=== PATIENT | male | born 1960 | race Caucasian/White ===

== ENCOUNTER → 2018-09-14 | Outpatient (CLI) | payer MEDICARE ==
--- NOTE | 2018-09-14 16:38 | KCIC ---
Left shoulder 3 views, left humerus 2 views. HISTORY: Left shoulder pain 3 views were taken of the left shoulder. There is not evidence of an acute fracture or dislocation or osseous abnormality. Left humerus 2 views 2 views were taken of the left humerus. There is not evidence of an acute fracture or osseous abnormality. If the elbow is of concern an additional views including a true lateral of the elbow would be of benefit. IMPRESSION: 1. Negative left humerus. 2. No fracture or dislocation or acute osseous abnormality in the left shoulder. Electronically signed by: Karthikeyan Bolaños MD (09/14/2018 4:35 PM) [facility]
== END | disposition home or self-care (01) ==
LOC: KCIC 11:36
PROVIDERS: ATTEND Family Medicine
DX: M79.602 Pain in left arm (principal); M25.512 Pain in left shoulder
CPT/HCPCS: 73030; 73060

== ENCOUNTER → 2021-05-23 | Outpatient (CLI) | payer MEDICARE ==
--- NOTE | 2021-05-23 14:56 | KCIC ---
EXAM: Left foot, 3 views. HISTORY: Pain. COMPARISON: None. FINDINGS: 3 views of the left foot are obtained. There is a healed distal fifth metatarsal fracture w ith surrounding bridging callus. There is a second hammertoe deformity. There is mild first metatarsa l phalangeal joint spurring. IMPRESSION: 1. Healed distal fifth metatarsal fracture. 2. Minimal first metatarsal phalangeal joint osteoarthritis. 3. Second hammertoe deformity. Electronically signed by: Lisa Urbano MD (05/23/2021 2:54 PM) [id number]
--- NOTE | 2021-05-23 15:05 | KCIC ---
EXAM: Lower extremity arterial Doppler sonogram with ankle-brachial indices (SATYA). HISTORY: Pain. Cigarette smoking. Peripheral vascular disease. TECHNIQUE: Doppler sonographic evaluation of the lower extremities was performed and pressure reading s were assessed. FINDINGS: Right brachial pressure: 105 mmHg Left brachial pressure: 110 mmHg The right and left ankle pressure is at the dorsalis pedis and posterior tibial arteries cannot be ca lculated. This can be seen with severe vessel hardening significant calcified plaque. IMPRESSION: Noncalculable ankle-brachial indices. This can be seen with severe vessel hardening. Electronically signed by: Lisa Urbano MD (05/23/2021 3:02 PM) [id number]
== END ==
LOC: KCIC US 13:58
PROVIDERS: ATTEND Family Medicine
DX: M19.072 Primary osteoarthritis, left ankle and foot (principal); M20.42 Other hammer toe(s) (acquired), left foot; M77.52 Other enthesopathy of left foot and ankle; F17.210 Nicotine dependence, cigarettes, uncomplicated
CPT/HCPCS: 73630; 93922

== ENCOUNTER → 2021-06-15 | Outpatient (CLI) | payer MEDICARE ==
[~2021-06-15] MED LIST: ASPI-630 PO; CLOP75TA PO; GABA-585 PO; HYDR-2769 PO
[2021-06-15 13:14] LABS: BASO % 1 % (0-3); EOS % 1 % (0-3); HEMATOCRIT 42.4 % (39.0-53.0); HEMOGLOBIN 14.2 g/dL (13.0-17.5); LYMPH # 1.1 x10^3/uL (1.0-4.8); LYMPH % 26 % (24-48); MEAN CORPUSCULAR HEMOGLOBIN 32 pg (25-35); MEAN CORPUSCULAR HGB CONC 33 g/dL (31-37); MEAN CORPUSCULAR VOLUME 95 fL (79-100); MONO # 0.3 x10^3/uL (0.0-1.1); MONO % 6 % (0-9); NEUT # 2.9 x10^3/uL (1.8-7.7); NEUT % 66 % (31-73); PLATELET COUNT 174 x10^3/uL (140-400); RED BLOOD COUNT 4.47 x10^6/uL (4.30-5.70); RED CELL DISTRIBUTION WIDTH 14.5 % (11.5-14.5); WHITE BLOOD COUNT 4.4 x10^3/uL (4.0-11.0)
== END ==
LOC: LAB 12:31
PROVIDERS: ATTEND Podiatrist
DX: I99.8 Other disorder of circulatory system (principal)
CPT/HCPCS: 36415; 85025; 85651; 86140; 87075; 87077; 87147

== ENCOUNTER → 2021-06-18 | Outpatient (CLI) | payer MEDICARE ==
--- NOTE | 2021-06-18 10:34 | RAD ---
US DPLX ARTR EXTREM LOWER BILAT Indication: Reason: ISCHEMIC TOE / Spl. Instructions: / History: Pain Comparison: None. Procedure: Real-time grayscale, color flow Doppler, and Doppler spectral waveform analysis of the art erial system of the lower extremity is performed. Findings: Right lower extremity: Monophasic wave forms throughout the right lower extremity. Significant elevat ed velocity within the right superficial femoral artery distally measures 535 cm/s. No occlusion. Sev ere atheromatous plaque. Left lower extremity: Occlusion of the popliteal artery. Peroneal artery not identified. Often seen w ith fluid throughout the left lower extremity. No significant velocity elevation. Severe atheromatous plaque. IMPRESSION: 1. Occlusion of the LEFT popliteal artery with distal reconstitution. CT angiogram can further asses s if persistent clinical concern. 2. Severely elevated velocity within the RIGHT superficial femoral artery, may indicate greater than 95 percent stenosis. 3. Monophasic waveforms within the bilateral lower extremities, may indicate proximal aortoiliac prateek nosis. 4. LEFT peroneal artery not identified, may relate to slow flow or occlusion. Electronically signed by: Nader Avilez DO (06/18/2021 10:32 AM) [id number]
== END ==
LOC: US 07:07
PROVIDERS: ATTEND Podiatrist
DX: I70.203 Unspecified atherosclerosis of native arteries of extremities, bilateral legs (principal); I70.245 Atherosclerosis of native arteries of left leg with ulceration of other part of foot
CPT/HCPCS: 93925

== ENCOUNTER → 2021-06-25 | Outpatient (CLI) | payer MEDICARE ==
[~2021-06-25] VITALS: Ht 193 cm; Wt 91.0 kg
[2021-06-25] VITALS (11 sets, daily range): BP systolic 99–120; BP diastolic 65–74
[~2021-06-25] MED LIST changes: +0.9 % SODIUM CHLORIDE 10 ML DISP.SYRIN. IV PRN; +ACETAMINOPHEN 325 MG TABLET. PO PRN; +ASPIRIN 325 MG TABLET ONE; +ASPIRIN 325 MG TABLET PO ONE; +ASPIRIN ENTERIC COATED 81 MG TABLET.DR. PO SCH; +CLOPIDOGREL BISULFATE 75 MG TABLET ONE; +CLOPIDOGREL BISULFATE 75 MG TABLET PO ONE; +CLOPIDOGREL BISULFATE 75 MG TABLET PO SCH; +CONTRAST GIVEN. MC PRN; +HEPARIN for IV BOLUS 10,000 UNIT/10 ML VIAL. IART ONE; +HEPARIN for IV BOLUS 10,000 UNIT/10 ML VIAL. ONE; +IODIXANOL 320 200 ML in NS 200 ML IART ONE; +IV 1/2 NORMAL SALINE 1,000 ML IV SCH; +LIDOCAINE 1% Multi-Dose 20 ML VIAL. INJ ONE; +LIDOCAINE 1% Multi-Dose 20 ML VIAL. ONE; +LIDOCAINE 1% PF 2 ML VIAL. INJ ONE; +LIDOCAINE 1% PF 2 ML VIAL. ONE; +MIDAZOLAM HCL/PF 2 MG/2 ML VIAL. IV ONE; +MIDAZOLAM HCL/PF 2 MG/2 ML VIAL. IVP ONE; +MIDAZOLAM HCL/PF 2 MG/2 ML VIAL. ONE; +NITROGLYCERIN 200 MCG/2 ML SYRINGE FOR CATH/VASC LAB. IART ONE; +NITROGLYCERIN 200 MCG/2 ML SYRINGE FOR CATH/VASC LAB. ONE; +VERAPAMIL 5 MG/2 ML VIAL. IART ONE; +VERAPAMIL 5 MG/2 ML VIAL. ONE; +diphenhydrAMINE 50 MG/ML VIAL IVP ONE; +diphenhydrAMINE 50 MG/ML VIAL ONE; +fentaNYL PF VIAL 100 MCG/2 ML VIAL IV ONE; +fentaNYL PF VIAL 100 MCG/2 ML VIAL IVP ONE; +fentaNYL PF VIAL 100 MCG/2 ML VIAL IVP PRN; +fentaNYL PF VIAL 100 MCG/2 ML VIAL ONE
[2021-06-25 09:39] LABS: HEMATOCRIT 43.9 % (39.0-53.0); HEMOGLOBIN 14.6 g/dL (13.0-17.5); RED BLOOD COUNT 4.64 x10^6/uL (4.30-5.70); RED CELL DISTRIBUTION WIDTH 14.3 % (11.5-14.5); WHITE BLOOD COUNT 4.4 x10^3/uL (4.0-11.0)
[2021-06-25 09:48] LABS: PROTHROMBIN TIME PATIENT 12.5 SEC (11.7-14.0)
[2021-06-25 10:14] LABS: CALCIUM 9.5 mg/dL (8.5-10.1); CREATININE 1.1 mg/dL (0.7-1.3); GFR 67.6; POTASSIUM 3.9 mmol/L (3.5-5.1)
--- NOTE | 2021-06-25 13:28 | PDOC ---
MODERATE SEDATION ASSESSMENT RISKS/ALTERNATIVES Risks/Alternatives Risks and alternatives of this type of sedation and procedure discussed with: RISK/ALTERNATIVES: Patient H & P ON CHART H & P H & P on chart and reviewed for co-morbid conditions and appropriate labs. H&P ON CHART: Yes STATUS PREG STATUS ASSESSED: N/A MEDS/ALLERGIES REVIEWED Meds/Allergies Reviewed Medications and Allergies including time and route of recently administered narcotics and sedatives. MEDS/ALLERGIES REVIEWED: Yes ASA RATING ASA RATING: III AIRWAY ASSESSMENT Airway Assessment Airway patency, oral function limitations, presence of caps, crowns, dentures, partials, and ability to extend neck assessed. AIRWAY ASSESSMENT: Yes MALLAMPATI SCORE MALLAMPATI SCORE: II PRE-SEDATION ASSESSMENT PRE-SEDATION ASSESSMENT: Yes NELIA MIKE MD Jun 25, 2021 13:28
--- NOTE | 2021-06-25 13:45 | CARD ---
MR#: [id number] Date of Study: 06/25/2021 Ordering Physician: NELIA MIKE, Referring Physician: NELIA MIKE, Tech: RT Leno(R) APPROVED REPORT Patient StatusCLI Distribution District Supervisor: RT Leno(R) Procedure(s) performed: 1. Aortogram with bilateral lower extremity runoff 2. Successful complex orbital atherectomy/MARKET DEVELOPMENT EXECUTIVE/stent placement to left distal SFA and proximal to mid popliteal arteries. fluoro time: 32.4min dose: 26fpkg5 contrast: 184cc moderate sedation: 136 MIN INDICATION FOR PROCEDURE The indication(s) include : Peripheral artery disease with claudication, critical limb ischemia with gangrenous left fourth toe. CASE TECHNIQUE After explaining the risks, benefits, and alternative options, informed consent was obtained from the patient. IV conscious sedation was used throughout procedure with appropriate monitoring and was per formed in the presence of a registered nurse who was an independent trained observer other than the marc poole performing the procedure. During this case, Fluoroscopy and low osmolar contrast were used f or imaging. Specimen(s) Removed: No Estimated Blood loss: 15 cc's. PROCEDURE NARRATIVE After explaining the risk, benefits and alternative options, informed consent was obtained from patie nt. Patient was brought to the cardiac Agronomy Supervisor and his right wrist was prepped and draped in the us ual fashion after confirming a positive modified Thanh's test. Arterial [facility] and a 6 [place] sheath was inserted. A 4 [place] R2P PV multivurve catheter was the n advanced under fluoroscopic guidance and with the tip positioned in the distal descending aorta, ao rtoiliac angiography was performed. The catheter was then advanced into the left common femoral florencia ry and selective left lower extremity angiography was performed. This was then positioned in the rig ht common femoral artery under fluoroscopic guidance and selective right lower extremity angiography was performed. The following findings were noted: FINDINGS 1. No significant stenosis involving the distal descending aorta 2. No significant stenosis involving bilateral common and external iliac arteries 3. No significant stenosis involving bilateral common femoral arteries 4. No significant stenosis involving bilateral deep femoral/profunda femoris arteries. The right horn perficial femoral artery showed a critical 90 to 95% stenosis in the distal segment. The left superf icial femoral artery showed 100% chronic occlusion in the distal segment. 5. No significant stenosis involving the right popliteal artery. The left popliteal artery showed 1 00% chronic total occlusion in the proximal to mid segment with reconstitution of the distal segment from collaterals. 6. There is three-vessel runoff below the knee bilaterally. The left anterior tibial artery showed 40% stenosis in the proximal segment. INTERVENTION Since patient was very tall and since catheter/balloons would not reach the distal SFA/popliteal vess els, we decided to perform intervention via right groin access. The skin and subcutaneous tissues of the previously prepped and draped right groin was infiltrated with 10 cc of 2% lidocaine. Arterial access was obtained in the right common femoral artery and a 6 [place] 45 cm destination sheath was in serted. This was advanced over the aortic palak with the help of a 5 [place] crossover catheter and the tip was positioned in the proximal segment of the left superficial femoral artery. With the help of backup support from 4 [place] angled glide catheter, the chronic total occlusion of the distal SFA /proximal to mid popliteal artery was crossed with a 0.035 inch angled glide catheter. This was then exchanged over a Joseph cross catheter to a Viper wire. Multiple orbital atherectomy passes were then performed within the lesions using a CSI diamondback 1.5 atherectomy catheter. The lesions were the n dilated with a 5.0 x 80 mm followed by 6.0 x 120 mm Fung Hannacroix balloons. Follow-up angiography showed significant recoil in the popliteal artery. Hence the lesion was then treated with a 7.0 x 60 mm Terumo Misago self-expanding stent. Follow-up angiography showed 70 to 80% stenosis in the dista l segment of the popliteal artery. Since we initially suspected vasospasm, 2 rounds of intra-arteria l nitroglycerin were given without any improvement in the lesion. This was dilated with 5.0 x 18 mm Fung Hannacroix balloon at low pressures. Final angiography showed resolution of the lesion with good distal flow. Patient tolerated the procedure well. Hemostasis in the right wrist was obtained using TR band and right groin using Angio-Seal. There were no immediate complications. Conclusion 1. 90 to 95% stenosis involving the right superficial femoral artery and 100% chronic total occlusio n involving the distal segment of the left superficial femoral artery extending into the proximal to mid segment of the left popliteal artery. 2. Successful complex orbital atherectomy/MARKET DEVELOPMENT EXECUTIVE/stent placement to left SFA/popliteal arteries. Recommendations Plan for staged atherectomy/MARKET DEVELOPMENT EXECUTIVE to the right superficial femoral artery in 2 to 3 weeks. Vascular risk factor modification including smoking cessation. Signed by : Nelia Mike, Electronically Approved : 06/25/2021 13:45:27
--- NOTE | 2021-06-25 14:50 | NUR ---
Prescription for Plavix 75mg daily called in to the [facility] [phone]. Also pharmacist made note to include OTC aspirin 81mg when pt picks up meds. LION ANGELO
--- NOTE | 2021-06-25 16:00 | NUR ---
Discharge Note: DELANO RUTH Discharge instructions and discharge home medications reviewed with Patient and a copy given. All questions have been answered and understanding verbalized. Dressing to R wrist and R groin site dry and intact, armboard in place The following instructions and handouts were given: sedation, groin site care, radial site care, angioplasty, peripheral vascular disease, stent card, angioseal booklet. Plavix RX and Aspirin 81mg called in to [facility]. Discontinued lines and drains: Peripheral IV intact. Patient discharged to Home or Self Care with Family Member via Wheelchair LION ANGELO Addendum: 06/25/21 at 1607 by JOI MEDINA RN Amended: Links added.
== END | disposition home or self-care (01) ==
LOC: CCL 08:42
PROVIDERS: ATTEND Internal Medicine Cardiovascular Disease
DX: I73.9 Peripheral vascular disease, unspecified (principal); I70.222 Atherosclerosis of native arteries of extremities with rest pain, left leg; F17.210 Nicotine dependence, cigarettes, uncomplicated; Z79.82 Long term (current) use of aspirin; Z79.899 Other long term (current) drug therapy; Z98.890 Other specified postprocedural states
CPT/HCPCS: 36415; 37227; 75625; 75716; 80048; 85027; 85610; 99152; 99153; C1769; C1894; G0269; J1200; J1644; J2250; J3010; J3490; J7030; J7050; Q9967

== ENCOUNTER → 2021-06-27 | Outpatient (CLI) | payer MEDICARE ==
[2021-06-25 15:45] VITALS: BP 108/67
[~2021-06-27] MED LIST changes: -0.9 % SODIUM CHLORIDE 10 ML DISP.SYRIN. IV PRN; -ACETAMINOPHEN 325 MG TABLET. PO PRN; -ASPIRIN 325 MG TABLET ONE; -ASPIRIN 325 MG TABLET PO ONE; -ASPIRIN ENTERIC COATED 81 MG TABLET.DR. PO SCH; -CLOPIDOGREL BISULFATE 75 MG TABLET ONE; -CLOPIDOGREL BISULFATE 75 MG TABLET PO ONE; -CLOPIDOGREL BISULFATE 75 MG TABLET PO SCH; -CONTRAST GIVEN. MC PRN; -HEPARIN for IV BOLUS 10,000 UNIT/10 ML VIAL. IART ONE; -HEPARIN for IV BOLUS 10,000 UNIT/10 ML VIAL. ONE; -IODIXANOL 320 200 ML in NS 200 ML IART ONE; -IV 1/2 NORMAL SALINE 1,000 ML IV SCH; -LIDOCAINE 1% Multi-Dose 20 ML VIAL. INJ ONE; -LIDOCAINE 1% Multi-Dose 20 ML VIAL. ONE; -LIDOCAINE 1% PF 2 ML VIAL. INJ ONE; -LIDOCAINE 1% PF 2 ML VIAL. ONE; -MIDAZOLAM HCL/PF 2 MG/2 ML VIAL. IV ONE; -MIDAZOLAM HCL/PF 2 MG/2 ML VIAL. IVP ONE; -MIDAZOLAM HCL/PF 2 MG/2 ML VIAL. ONE; -NITROGLYCERIN 200 MCG/2 ML SYRINGE FOR CATH/VASC LAB. IART ONE; -NITROGLYCERIN 200 MCG/2 ML SYRINGE FOR CATH/VASC LAB. ONE; -VERAPAMIL 5 MG/2 ML VIAL. IART ONE; -VERAPAMIL 5 MG/2 ML VIAL. ONE; -diphenhydrAMINE 50 MG/ML VIAL IVP ONE; -diphenhydrAMINE 50 MG/ML VIAL ONE; -fentaNYL PF VIAL 100 MCG/2 ML VIAL IV ONE; -fentaNYL PF VIAL 100 MCG/2 ML VIAL IVP ONE; -fentaNYL PF VIAL 100 MCG/2 ML VIAL IVP PRN; -fentaNYL PF VIAL 100 MCG/2 ML VIAL ONE
== END ==
LOC: LAB 09:48
PROVIDERS: ATTEND Podiatrist
DX: Z01.812 Encounter for preprocedural laboratory examination (principal); Z20.822 Contact with and (suspected) exposure to COVID-19
CPT/HCPCS: U0003

== ENCOUNTER 2021-06-29 05:41 | Day surgery (SDC) | payer MEDICARE ==
[~2021-06-29] VITALS: Ht 193 cm; Wt 92.7 kg
[2021-06-29] MEDS ORDERED: PROCHLORPERAZINE 10 MG/2 ML VIAL. IVP PRN (06:00)
[2021-06-29] MEDS ORDERED: HYDROmorphone 2 MG/ML INJ. IVP PRN (06:00)
[2021-06-29] MEDS ORDERED: fentaNYL PF VIAL 100 MCG/2 ML VIAL IVP PRN ×2 (06:00)
[2021-06-29] MEDS ORDERED: MORPHINE SULFATE 2 MG/ML INJ. IVP PRN (06:00)
[2021-06-29] MEDS ORDERED: IV RINGERS,LACTATED 1000ML 1,000 ML IV SCH (06:00)
[2021-06-29 06:12] VITALS: BP 102/59
[2021-06-29] MEDS ORDERED: BUPIVACAINE MPF 0.25% 30 ML VIAL. ONE (07:01)
[2021-06-29] MEDS ORDERED: SEVOFLURANE 31 TO 60 MINUTES. IH ONE (07:02)
[2021-06-29] MEDS ORDERED: PROPOFOL 10 MG/ML (20ML) VIAL. IV ONE (07:02)
[2021-06-29] MEDS ORDERED: ONDANSETRON PF 4 MG/2 ML VIAL. ONE (07:02)
[2021-06-29] MEDS ORDERED: LIDOCAINE 2% PF 5 ML VIAL. ONE (07:02)
[2021-06-29] MEDS ORDERED: DEXAMETHASONE SOD PHOS 4 MG/ML VIAL ONE (07:02)
[2021-06-29] MEDS ORDERED: fentaNYL PF VIAL 100 MCG/2 ML VIAL ONE ×2 (07:37→08:24)
--- NOTE | 2021-06-29 08:19 | PDOC4 ---
OPERATIVE NOTE Date: Date: Jun 29, 2021 Pre-Op Diagnosis: Left fourth digit dry gangrene in the setting of severe PAD Post-Op Diagnosis: Same as above Procedure Performed: Left fourth partial digit amputation Surgeon: Natalya Cronin DPM Anesthesia Type: General Blood Loss: 10 cc Specimans Obtained: Left distal fourth digit and osteomyelitis rule out at the proximal margin [proximal phalangeal head] Findings: Dry gangrenous changes limited to the soft tissue envelope without any violation to the flexor tendon or extensor tendon. The bone was hard to probe without any fragmentation or significant remarks of osteomyelitis. There was no proximal tracking, fluctuance noted. Adequate soft tissue bleeding was noted. Complications: None Operative Note: Patient was brought into the operating room and placed on the operating table in a supine position. A timeout was performed to confirm patient's identity, location of surgery and procedure. After induction of general anesthesia, a pneumatic left ankle tourniquet was placed. Following Betadine skin prep, 8 cc of 0.2% Marcaine plain was infiltrated to the distal fourth ray. The left lower extremity was then scrubbed, prepped and draped in the usual sterile manner. Tourniquet was not inflated. Then the attention was directed to the left distal fourth digit. A full- thickness, modified fishmouth incision was carried out to the level of PIPJ proximal to the gangrenous changes. The incision was carried deep to the level of the periosteum. The operative finding was negative for fluctuance, proximal tracking, osteolytic changes to bone. Deep tissue culture was collected at this time for anaerobes, aerobes and sensitivity. The fourth digit was resected out at the level of fourth proximal phalangeal head indicated by the soft tissue envelope, skin closure under minimal tension. The gross specimen was sent for pathology with the proximal margin of the metatarsal bone inked for clear margin study. The surgical site was irrigated with copious saline solution. Afterwards, wound site inspection was negative for necrotic tissue or fluctuance. The tissue appeared granular with healthy pinpoint bleeding. Then a repeat deep tissue culture was collected for anaerobes, aerobes and sensitivity. The surgical site was closed with 4-0 Vicryl and 4-0 nylon under minimal to no tension. The surgical foot was dressed with Xeroform, 4 x 4 gauze, soft roll, abdominal pad and Tirso bandage with minimal compression. A surgical shoe was also placed to the left lower extremity. Patient tolerated procedure anesthesia well with vital signs stable and neurovascular status intact. Patient was then transferred to PACU for continued recovery. Pending surgical foot x-ray 3 view in PACU. Pending CBC. Patient will be given Plavix and aspirin as patient did not take the medicine this morning at home. NATALYA CRONIN DPM Jun 29, 2021 08:19
[2021-06-29] MEDS ORDERED: ACETAMINOPHEN 325 MG TABLET. PO ONE (08:30)
[2021-06-29] MEDS ORDERED: oxyCODONE/APAP 5/325 1 TAB TABLET PO ONE (08:30)
[2021-06-29 09:03] VITALS: BP 96/68
[2021-06-29 09:25] LABS: HEMATOCRIT 39.1 % (39.0-53.0); HEMOGLOBIN 13.4 g/dL (13.0-17.5); RED BLOOD COUNT 4.16 x10^6/uL (4.30-5.70); RED CELL DISTRIBUTION WIDTH 14.7 % (11.5-14.5); WHITE BLOOD COUNT 3.8 x10^3/uL (4.0-11.0)
--- NOTE | 2021-06-29 14:57 | RAD ---
EXAM: XR FOOT_LEFT 3 VIEWS 06/29/2021 8:35 AM CLINICAL INDICATION: PACU, postop amputation COMPARISON: Left foot radiograph 05/23/2021 TECHNIQUE: AP, oblique, and lateral views of the left foot FINDINGS: There are new surgical changes of fourth toe amputation. There is an old healed fifth meta tarsal fracture. The bones are diffusely demineralized. No acute fracture. Alignment is normal. Mild soft tissue swelling of the forefoot. IMPRESSION: New surgical changes of fourth toe amputation. Electronically signed by: Sandra Elkins MD (06/29/2021 2:55 PM) [id number]
--- NOTE | 2021-07-02 17:10 | PATHOLOGY ---
[facility] Accession Number: [id number] . 01 Material submitted: . PART A: toe - LEFT 4TH TOE PART B: toe - LEFT 4TH PROXIMAL MARGIN- BLUE BEGUM- OSTEOMYELITIS RULE OUT . 01 Clinical history: . INFECTED LEFT 4TH TOE . 02 Diagnosis: A. Left fourth toe amputation: - Gangrenous necrosis of distal toe with ulceration, acute cellulitis and acute osteomyelitis of distal phalangeal bone. . B. Segment of bone and soft tissue, left fourth toe proximal margin: - No evidence of acute cellulitis or acute osteomyelitis. (JPM:[facility]; 07/02/2021) [facility] 07/02/2021 1645 Local . 02 Electronically signed: . Francisco Wagner MD, Pathologist NPI- [id number] . 01 Gross description: . A. The specimen is received in formalin, labeled "Mart[place] Longoria, left fourth toe". Received is an amputated digit measuring 2.9 cm from anterior to posterior, 2.1 cm from inferior to superior, and 1.9 cm from medial to lateral. The skin and soft tissue margin appears quevedo-pink, focally hemorrhagic and viable. The brianna margin is smooth, firm, glistening and convex, consistent with disarticulation. The distal epidermal surface appears hardwick to black, partially mummified, partially ulcerated, focally softened, eroded and purulent. The involved area measures approximately 2.2 by 1.6 x 1.1 cm, and involves the nail bed, and is located 1.1 cm from the closest inferior skin and soft tissue margin, 0.4 cm from the closest superior skin and soft tissue margin, and 0.8 cm from the bony margin. The nail is absent. The bone and soft tissue margin is inked black. A disability representative full-thickness longitudinal cross-section is submitted in cassette A1, following decalcification. . B. The specimen is received in formalin, labeled "Mart[place], proximal margin (blue marker) osteomyelitis rule out". Received is a single, previously oriented, bone fragment, measuring 1.0 x 0.8 x 0.7 cm. The proximal margin of the bone fragment is inked blue, appears flat and firm, consistent with a resection margin. The opposing and appears quevedo-white, firm glistening, and concave, consistent with disarticulation. The designated proximal margin is inked black. The specimen is trisected and entirely submitted in cassette B1. (J; 06/29/2021) J/J 07/02/2021 1512 Local . 02 Pathologist provided ICD-10: I96, L97.529, L03.032, M86.172 . 02 CPT . 600750, 092086, 267407 Specimen Comment: A courtesy copy of this report has been sent to [phone], [phone] Specimen Comment: [id number] Specimen Comment: Report sent to / DR BELL Specimen Comment: A duplicate report has been generated due to demographic updates. Performed at: 01 [facility] [address], [place], [place] [id number] MD Montrell Crump MD Phone: [phone] Performed at: 02 [facility] [address], [place] [id number] MD Francisco Wagner MD Phone: [phone]
== END 2021-06-29 09:57 | disposition home or self-care (01) ==
LOC: SURG 05:41
PROVIDERS: ATTEND Podiatrist
DX: I99.8 Other disorder of circulatory system (principal); I73.9 Peripheral vascular disease, unspecified; L03.116 Cellulitis of left lower limb; F17.210 Nicotine dependence, cigarettes, uncomplicated; Z79.82 Long term (current) use of aspirin; Z79.899 Other long term (current) drug therapy; Z98.890 Other specified postprocedural states
CPT/HCPCS: 28820; 36415; 73630; 85027; 87075; 87077; A4930; A6223; A6253; A6402; A6450; J0690; J1100; J2405; J2704; J3010; J3490; 88305; 88311; A4657; A6443

== ENCOUNTER → 2021-07-03 | Outpatient (CLI) | payer MEDICARE ==
[2021-06-29 09:03] VITALS: BP 96/68
--- NOTE | 2021-07-03 17:40 | CARD ---
MR#: [id number] Date of Study: 07/03/2021 Ordering Physician: NELIA HART, Referring Physician: NELIA HART, Tech: BEBA WREN RDCS,RVT APPROVED REPORT EXAM: Two-dimensional and M-mode echocardiogram with Doppler and color Doppler. Other Information Quality : GoodHR: 78bpm Rhythm : NSR INDICATION EDEMA, PVD 2D DIMENSIONS RVDd3.3 (2.9-3.5cm)Left Atrium(2D)2.8 (1.6-4.0cm) IVSd1.2 (0.7-1.1cm)Aortic Root(2D)3.1 (2.0-3.7cm) LVDd3.8 (3.9-5.9cm)LVOT Diameter2.1 (1.8-2.4cm) PWd1.2 (0.7-1.1cm)LVDs3.1 (2.5-4.0cm) FS (%) 18.8 %SV24.8 ml LVEF(%)39.4 (>50%) Aortic Valve AoV Peak Tim.111.6cm/sAoV VTI20.9cm AO Peak GR.5.0mmHgLVOT Peak Tim.105.0cm/s LVOT VTI 20.90cmAO Mean GR.3mmHg CINTHIA (VMAX)2.61qc9YIL (VTI)3.49cm2 Mitral Valve MV E Fgzxtyyu69.1cm/sMV DECEL FYLG434uf MV A Bjpninzi72.6cm/sMV NVP30la E/A Ratio1.1MVA (PHT)2.71cm2 TDI E/Lateral E'6.5E/Medial E'8.1 Pulmonary Valve PV Peak Cfrzanwb89.2cm/sPV Peak Grad.3mmHg Tricuspid Valve TR P. Jqwfkxtu058nw/sRAP KFGUTIXZ3cfVd TR Peak Gr.56ojPsGRUN62dmVa Pulmonary Vein S1 Qrnogzaa46.1cm/sD2 Wwcapfma76.2cm/s PVa [id number] LEFT VENTRICLE The left ventricle is normal size. There is normal left ventricular wall thickness. Left ventricle sy stolic function is low normal. The Ejection Fraction is 50%. No regional wall motion abnormalities no jv. Transmitral Doppler flow pattern is Grade II-pseudonormal filling dynamics. No left ventricle th rombus noted on this study. There is no ventricular septal defect visualized. There is no left ventri cular aneurysm. There is no mass noted in the left ventricle. RIGHT VENTRICLE The right ventricle is normal size. There is normal right ventricular wall thickness. The right ventr icular systolic function is normal. ATRIA The left atrium size is normal. The right atrium size is normal. The interatrial septum is intact wit h no evidence for an atrial septal defect or patent foramen ovale as noted on 2-D or Doppler imaging. AORTIC VALVE The aortic valve is normal in structure and function. No aortic regurgitation is present. There is no aortic valvular stenosis. There is no aortic valvular vegetation. MITRAL VALVE The mitral valve is normal in structure and function. There is no evidence of mitral valve prolapse. There is no mitral valve stenosis. Doppler and Color-flow revealed mild mitral regurgitation. TRICUSPID VALVE The tricuspid valve is normal in structure and function. Doppler and Color Flow revealed mild tricusp id regurgitation. The PA pressure was estimated at 21 mmHg. There is no tricuspid valve prolapse or v egetation. There is no tricuspid valve stenosis. PULMONIC VALVE The pulmonary valve is normal in structure and function. There is no pulmonic valvular regurgitation. There is no pulmonic valvular stenosis. GREAT VESSELS The aortic root is normal in size. The ascending aorta is normal in size. The pulmonary artery is nor mal. The IVC is normal in size and collapses >50% with inspiration. PERICARDIAL EFFUSION There is no pleural effusion. There is no evidence of significant pericardial effusion. Critical Notification Critical Value: No <Conclusion> Left ventricle systolic function is low normal. The Ejection Fraction is 50%. Transmitral Doppler flow pattern is Grade II-pseudonormal filling dynamics. Mild mitral regurgitation. Mild tricuspid regurgitation. The PA pressure was estimated at 21 mmHg. There is no evidence of significant pericardial effusion. Signed by : Nelia Hart, Electronically Approved : 07/03/2021 17:40:04
== END ==
LOC: ECHO 09:51
PROVIDERS: ATTEND Internal Medicine Cardiovascular Disease
DX: I08.1 Rheumatic disorders of both mitral and tricuspid valves (principal); R60.9 Edema, unspecified
CPT/HCPCS: 93306; C8929

== ENCOUNTER 2021-07-16 06:28 | Outpatient (CLI) | payer MEDICARE ==
[2021-07-16] VITALS (14 sets, daily range): BP systolic 85–116; BP diastolic 1–76
[~2021-07-16] VITALS: Ht 193 cm; Wt 91.0 kg
[2021-07-16] MEDS ORDERED: fentaNYL PF VIAL 100 MCG/2 ML VIAL ONE (08:16)
[2021-07-16] MEDS ORDERED: HEPARIN for IV BOLUS 10,000 UNIT/10 ML VIAL. ONE ×2 (08:16→08:45)
[2021-07-16] MEDS ORDERED: MIDAZOLAM HCL/PF 2 MG/2 ML VIAL. ONE ×2 (08:16→08:42)
[2021-07-16] MEDS ORDERED: NITROGLYCERIN 4 MG/20 ML SYRINGE for CATH LAB. ONE (08:18)
[2021-07-16] MEDS ORDERED: IODIXANOL 320 200 ML in NS 200 ML IART ONE (08:30)
[2021-07-16] MEDS ORDERED: LIDOCAINE 1% Multi-Dose 20 ML VIAL. ONE (08:37)
--- NOTE | 2021-07-16 09:13 | PDOC ---
MODERATE SEDATION ASSESSMENT RISKS/ALTERNATIVES Risks/Alternatives Risks and alternatives of this type of sedation and procedure discussed with: RISK/ALTERNATIVES: Patient H & P ON CHART H & P H & P on chart and reviewed for co-morbid conditions and appropriate labs. H&P ON CHART: Yes STATUS PREG STATUS ASSESSED: N/A MEDS/ALLERGIES REVIEWED Meds/Allergies Reviewed Medications and Allergies including time and route of recently administered narcotics and sedatives. MEDS/ALLERGIES REVIEWED: Yes ASA RATING ASA RATING: III AIRWAY ASSESSMENT Airway Assessment Airway patency, oral function limitations, presence of caps, crowns, dentures, partials, and ability to extend neck assessed. AIRWAY ASSESSMENT: Yes MALLAMPATI SCORE MALLAMPATI SCORE: II PRE-SEDATION ASSESSMENT PRE-SEDATION ASSESSMENT: Yes NELIA MIKE MD July 16, 2021 09:13
[2021-07-16] MEDS ORDERED: CONTRAST GIVEN. MC PRN (09:15)
[2021-07-16] MEDS ORDERED: LIDOCAINE 1% Multi-Dose 20 ML VIAL. INJ ONE (09:15)
[2021-07-16] MEDS ORDERED: IV 1/2 NORMAL SALINE 1,000 ML IV SCH (09:15)
[2021-07-16] MEDS ORDERED: HEPARIN for IV BOLUS 10,000 UNIT/10 ML VIAL. IV ONE (09:15)
[2021-07-16] MEDS ORDERED: fentaNYL PF VIAL 100 MCG/2 ML VIAL IV ONE (09:15)
[2021-07-16] MEDS ORDERED: MIDAZOLAM HCL/PF 2 MG/2 ML VIAL. IV ONE (09:15)
--- NOTE | 2021-07-16 09:37 | CARD ---
MR#: [id number] Date of Study: 07/16/2021 Ordering Physician: NELIA HART, Referring Physician: NELIA HART, Tech: RT Leno(R) APPROVED REPORT Patient StatusOUT-PATIENT Public Speaker: RT Leno(R) Procedure(s) performed: Right lower extremity angiography and successful percutaneous transluminal ba lloon angioplasty to right superficial femoral artery FL TIME: 7.3 MIN DOSE: 11 GYCM2 CONTRAST: 30 ML MODERATE SEDATION: 33 MINS INDICATION FOR PROCEDURE The indication(s) include : 61-year-old male with history of peripheral artery disease with claudicat ion recently underwent METER ENGINEER to chronic total occlusion involving the left SFA. He presented today for staged METER ENGINEER to the right SFA.. CASE TECHNIQUE After explaining the risks, benefits, and alternative options, informed consent was obtained from the patient. IV conscious sedation was used throughout procedure with appropriate monitoring and was per formed in the presence of a registered nurse who was an independent trained observer other than the marc poole performing the procedure. During this case, Fluoroscopy and low osmolar contrast were used f or imaging. Specimen(s) Removed: No Estimated Blood loss: 15 cc's. PROCEDURE NARRATIVE After explaining the risk, benefits and alternative options, informed consent was obtained from gabo nt. Patient was brought to the cardiac Floor Supervisor and his left groin was prepped and draped in the usu al fashion. 20 cc of 2% lidocaine was infiltrated into the skin and subcutaneous tissues for local a nesthesia. Arterial access was obtained in the left common femoral artery and a 6 [place] 45 cm [place] sheath was inserted. This was advanced over the aortic palak with the help of a crossover ca theter and the tip was positioned in the right common femoral artery. Selective right lower extremit y angiography confirmed the previously described 90 to 95% stenosis involving the mid to distal segme nt of the right superficial femoral artery with good three-vessel runoff below the knee. The lesion was crossed with a 0.014 inch command ES guidewire. This was then dilated successfully wi th a 5.5 x 40 mm [employer] [place] balloon. Follow-up angiography showed resolution of the lesion with g ood distal flow. Patient tolerated the procedure well. Hemostasis was achieved using Angio-Seal. T here were no immediate complications. Conclusion Successful balloon METER ENGINEER to the right superficial femoral artery Signed by : Nelia Hart, Electronically Approved : 07/16/2021 09:36:31
--- NOTE | 2021-07-16 13:35 | NUR ---
Discharge Note: DELANO RUTH [facility] Discharge instructions and discharge home medications reviewed with Patient and a copy given. All questions have been answered and understanding verbalized. The following instructions and handouts were given: smoking cessation,adult moderate sedation,and angiography post care Discontinued lines and drains: Peripheral IV intact. Patient discharged to Home or Self Care withFamily Membervia Wheelchair
== END 2021-07-16 13:37 | disposition home or self-care (01) ==
LOC: CCL 06:28
PROVIDERS: ATTEND Internal Medicine Cardiovascular Disease
DX: I73.9 Peripheral vascular disease, unspecified (principal); F17.210 Nicotine dependence, cigarettes, uncomplicated; Z79.82 Long term (current) use of aspirin; Z79.899 Other long term (current) drug therapy
CPT/HCPCS: 37224; 75710; 99152; 99153; G0269; J1644; J2250; J3010; J3490; J7050; Q9967; J7030